=== PATIENT | male | born 1995 | race Caucasian/White ===

== ENCOUNTER 2025-04-09 16:46 | Emergency (ER) | payer BC ==
[2025-04-09] MEDS: Dexamethasone 10 MG/ML SDV IM ONE (17:34)
== END 2025-04-09 17:40 | disposition home or self-care (01) ==
LOC: VM.ED 16:46 → SUPCPDRO 16:46 → VM.ED 17:40
DX: J45.21 Mild intermittent asthma with (acute) exacerbation (principal)
CPT/HCPCS: 94640; 96372; 99284; A9270-GY; J1100